=== PATIENT | female | born 1980 | race Caucasian/White ===

== ENCOUNTER 2018-01-17 16:05 | Emergency (ER) | payer BC, OTHER ==
[~2018-01-17] VITALS: Ht 170.2 cm; Wt 123.8 kg
[2018-01-17] MEDS ORDERED: IBUPROFEN 600 MG TAB PO STA (16:35)
[2018-01-17] MEDS ORDERED: IBUPROFEN 600 MG TAB ONE (16:42)
[2018-01-17] MEDS ORDERED: ACETAMINOPHEN 325 MG TAB PO ONE (17:45)
[2018-01-17] MEDS ORDERED: SODIUM CHLORIDE 0.9% 1000ML 1,000 ML IV SCH (18:30)
== END 2018-01-17 18:19 | disposition left against medical advice (07) ==
LOC: ER 16:05
DX: R53.1 Weakness (principal)